=== PATIENT | male | born 1965 | race Caucasian/White ===

== ENCOUNTER 2016-04-30 11:10 | Emergency (ER) | payer BC ==
[~2016-04-30] VITALS: Ht 188 cm; Wt 118.8 kg
--- NOTE | 2016-04-30 11:50 | NUR ---
Patient to ER bed 7 to gown for evaluation. Side rails up. Report given to NARGIS CA.
[2016-04-30 11:53] VITALS: BP 130/80; PULSE 83; RESP 16; TEMP 97.3; O2SAT 96
--- NOTE | 2016-04-30 11:55 | NUR ---
ER at bedside examining patient.
[2016-04-30] MEDS ORDERED: NACL 0.9% 2,000 ML IV ONE (12:15)
[2016-04-30 12:20] LABS: ABG TOTAL HEMOGLOBIN 14.3 G/dL (12.0-18.0); BLOOD GAS BASE EXCESS 0.3 mmol/L (-3.0-3.0); BLOOD GAS COHb% 1.3 % (0.5-1.5); BLOOD GAS HHB 5.5 % (0.0-6.0); BLOOD GAS PH 7.425 (7.350-7.450); BLOOD O2Hb% 93.1 % (94.0-97.0)
--- NOTE | 2016-04-30 12:22 | NUR ---
IV fluids started, pt tolerating well, blood collected and sent. family at bedside. Diabetic teaching done at bedside, signs and sypmtoms of hypo and hyperglycemia, verblized understanding
[2016-04-30 12:37] LABS: BASOPHILS % (AUTO) 0.6 % (0.0-2.0); EOSINOPHILS # (AUTO) 0.1 K/uL (0.0-0.4); EOSINOPHILS % (AUTO) 1.5 % (0.0-4.0); HEMATOCRIT 40.1 % (36-54); HEMOGLOBIN 13.3 g/dL (14.0-18.0); LYMPHOCYTES # (AUTO) 2.3 K/uL (1.0-5.5); LYMPHOCYTES % (AUTO) 29.1 % (20.5-51.5); MEAN CORPUSCULAR HEMOGLOBIN 28 pg (27-31); MEAN CORPUSCULAR HGB CONC 33 % (32-36); MEAN CORPUSCULAR VOLUME 85 fL (79.0-98.0); MONOCYTES # (AUTO) 0.5 K/uL (0.0-1.0); MONOCYTES % (AUTO) 6.1 % (1.7-9.3); NEUTROPHILS # (AUTO) 4.9 K/uL (1.8-7.7); NEUTROPHILS % (AUTO) 62.7 % (40.0-70.0); PLATELET COUNT (AUTO) 229 K/uL (130-430); RED BLOOD CELL COUNT(AUTO) 4.73 MIL/uL (4.2-6.2); RED CELL DISTRIBUTION WIDTH 12.6 % (9.0-15.0); WHITE BLOOD COUNT (AUTO) 7.8 K/uL (4.8-10.8)
[2016-04-30 12:44] LABS: INR 0.9 (0.80-1.20); PROTHROMBIN TIME 9.7 SECS (9.5-12.5)
[2016-04-30 12:59] LABS: ANION GAP 8 (5-15); CALCIUM 9.2 mg/dL (8.4-11.0); CHLORIDE 95 mmol/L (98-107); GLUCOSE 364 mg/dL (70-99); POTASSIUM 4.2 mmol/L (3.5-5.1); SODIUM SERUM 131 mmol/L (136-145); UREA NITROGEN, BLOOD 18 mg/dL (8-21)
[2016-04-30 13:00] LABS: CREATININE 0.91 mg/dL (0.55-1.30); GFR AFRICAN AMERICAN 113 mL/min (>90)
[2016-04-30 13:08] LABS: ALANINE AMINOTRANSFERASE 25 U/L (12-78); ALBUMIN 3.7 g/dL (3.4-4.8); ASPARTATE AMINOTRANSFERASE 12 U/L (10-37); CHOLESTEROL 242 mg/dL (<200); FREE T4 (FREE THYROXINE) 1.3 ng/dL (0.6-1.6); HDL CHOLESTEROL 41 mg/dL (>45); LDL CHOLESTEROL 165 mg/dL (<100); TOTAL BILIRUBIN 0.7 mg/dL (0.0-1.0); TOTAL PROTEIN, SERUM 7.6 g/dL (6.4-8.3); TRIGLYCERIDES 152 mg/dL (30-150)
[2016-04-30 13:09] LABS: THYROID STIMULATING HORMONE 0.35 uIu/mL (0.34-4.82)
[2016-04-30 13:15] LABS: ACETONE, SERUM NEGATIVE (NEGATIVE)
--- NOTE | 2016-04-30 14:07 | NUR ---
Pt up to bathroom, rubiien collected. Dr Marion informe dof repeat BS, medicated as ordered.
[2016-04-30] MEDS ORDERED: INSULIN REGULAR, HUMAN 10 UNITS/0.1 ML INJ IVP ONE (14:15)
[2016-04-30 14:23] LABS: BILIRUBIN,URINE NEGATIVE (NEGATIVE); CLARITY/URINE CLEAR (CLEAR); COLOR,URINE YELLOW (YELLOW); GLUCOSE,URINE 3+ (NEGATIVE); KETONES,URINE 3+ (NEGATIVE); LEUKOCYTE ESTERASE ,URINE NEGATIVE (NEGATIVE); NITRITE, URINE NEGATIVE (NEGATIVE); PH,URINE 5.5 (5.0-8.0); PROTEIN URINE NEGATIVE (NEGATIVE); UROBILINOGEN,URINE 0.2 (0.2-1.0)
[2016-04-30 14:31] LABS: BLOOD, URINE TRACE (NEGATIVE)
[2016-04-30 14:33] LABS: BACTERIA,URINE FEW /HPF (None Seen); MUCUS,URINE None Seen /LPF (None Seen); RBC,URINE 0-3 /HPF (0-3); WBC,URINE 0-3 /HPF (0-3)
[2016-04-30 17:38] VITALS: BP 127/76; PULSE 89; RESP 16; TEMP 97.3; O2SAT 100
== END 2016-04-30 17:38 | disposition home or self-care (01) ==
LOC: SED 11:10
DX: E11.8 Type 2 diabetes mellitus with unspecified complications (principal); R03.0 Elevated blood-pressure reading, without diagnosis of hypertension
CPT/HCPCS: 36415; 36600; 71010; 80053; 80061; 81000; 82009; 82803; 82962; 83880; 84439; 84443; 85025; 85610; 85730; 93005; 96361; 96374; 99285; J1815; J7030